=== PATIENT | male | born 1980 | race Caucasian/White ===

== ENCOUNTER 2016-11-09 03:33 | Emergency (ER) | payer MEDICAID, OTHER ==
[~2016-11-09] VITALS: Ht 177.8 cm; Wt 124.5 kg
[2016-11-09 03:38] VITALS: Ht 177.8 cm; Wt 124.5 kg
[2016-11-09] MEDS ORDERED: METHYLPREDNISOLONE 125 MG INJ IM ONE (04:30)
--- NOTE | 2016-11-09 05:07 | ERD ---
ER Documentation Chief Complaint Date/Time DATE: 11/09/16 TIME: 04:59 Chief Complaint scaterred body rashes x 1 day HPI 35-year-old male presents to emergency department for complaints of rash all over the body and itching started today. Patient cannot remember eating something new or different. Patient's complaining of itching all over the body. Patient took Benadryl at home to help with symptoms which helped. Patient denies any lip swelling, tongue swelling or stridor. Patient does not have any shortness of breath or wheezing. ROS All systems reviewed and are negative except as per history of present illness. Medications Home Meds Active Scripts Famotidine* (Pepcid*) 20 Mg Tablet, 20 MG PO BID, #20 TAB Prov:ABELARDO EWBBER NP 11/09/16 Diphenhydramine Hcl* (Benadryl*) 50 Mg Cap, 50 MG PO Q6H Y for ITCHING/RASH, # 30 CAP Prov:ABELARDO WEBBER NP 11/09/16 Prednisone* (Prednisone*) 50 Mg Tablet, 50 MG PO DAILY for 5 Days, TAB Prov:ABELARDO WEBBER NP 11/09/16 Reported Medications [none] Unknown Strength No Conflict Check 11/09/16 Allergies Allergies: Coded Allergies: No Known Allergy (Unverified , 11/09/16) PMhx/Soc Medical and Surgical Hx: pt denies Medical Hx, pt denies Surgical Hx History of Surgery: No Anesthesia Reaction: No Hx Neurological Disorder: No Hx Respiratory Disorders: No Hx Cardiac Disorders: No Hx Psychiatric Problems: No Hx Miscellaneous Medical Probl: No Hx Alcohol Use: No Hx Substance Use: No Hx Tobacco Use: No Smoking Status: Never smoker FmHx Family History: No coronary disease, No diabetes, No other Physical Exam Vitals Vital Signs Date Time Temp Pulse Resp B/P Pulse Ox O2 Delivery O2 Flow Rate FiO2 11/09/16 03:38 97.7 69 20 121/79 100 Physical Exam GENERAL: The patient is well developed and appropriate for usual state of health, in no apparent distress. CHEST: Clear to auscultation bilaterally. There are no rales, wheezes or rhonchi. HEART: Regular rate and rhythm. No murmurs, clicks, rubs or gallops. No S3 or S4. ABDOMEN: Soft, nontender and nondistended. Good bowel sounds. No rebound or guarding. No gross peritonitis. No gross organomegaly or masses. No Rizo sign or McBurney point tenderness. BACK: No midline or flank tenderness. EXTREMITIES: Equal pulses bilaterally. There is no peripheral clubbing, cyanosis or edema. No focal swelling or erythema. Full range of motion. Grossly neurovascularly intact. NEURO: Alert and oriented. Cranial nerves 2-12 intact. Motor strength in all 4 extremities with 5/5 strength. Sensation grossly intact. Normal speech and gait. SKIN: Maculopapular rash noted all over the body. There is no apparent ecchymosis or petechia. The skin is warm and dry. HEMATOLOGIC AND LYMPHATIC: There is no evidence of excessive bruising or lymphedema. No gross cervical, axillary, or inguinal lymphadenopathy. Results 24 hrs Current Medications Medications (Trade) Dose Ordered Sig/Salazar Route PRN Reason Start Time Stop Time Status Last Admin Dose Admin Methylprednisolone Sodium Succinate (Solu-Medrol) 125 mg ONCE ONCE IM 11/09/16 04:30 11/09/16 04:31 DC 11/09/16 04:50 Solu-Medrol was given here in emergency department, patient already took Benadryl at home. Verbalized feeling much better, tolerated dictation well. Procedures/MDM Medical decision making: Patient symptoms is likely this consistent with urticaria, allergic reaction, unknown source at this time, no symptoms of stridor, shortness of breath, angioedema, lip swelling or tongue swelling. Patient was given prescription for Pepcid, prednisone, Benadryl, is advised to avoid common allergens. Patient is advised to return to emergency department for new worsening symptoms Departure Diagnosis: Primary Impression: Urticaria Condition: Stable Patient Instructions: ABELARDO oPrtillo NP Nov 09, 2016 05:07
[2016-11-09] MEDS ORDERED: PRED50TA PO (05:08)
[2016-11-09] MEDS ORDERED: FAMO-18 PO (05:08)
[2016-11-09] MEDS ORDERED: BEN50 PO (05:08)
[2016-11-09 05:48] VITALS: BP 128/78; PULSE 72; RESP 16
== END 2016-11-09 05:48 | disposition home or self-care (01) ==
LOC: FTE 03:33
DX: L50.9 Urticaria, unspecified (principal)
CPT/HCPCS: 96372; J2930; Z7502